=== PATIENT | female | born 1990 | race Caucasian/White ===

== ENCOUNTER 2016-09-14 21:04 | Emergency (ER) | payer OTHER | END 2016-09-14 21:38 | disposition home or self-care (01) | LOC: ER1 21:04 | DX: S90.812A Abrasion, left foot, initial encounter (principal); Z23 Encounter for immunization; Z88.2 Allergy status to sulfonamides; Z88.8 Allergy status to other drugs, medicaments and biological substances; W22.03XA Walked into furniture, initial encounter; Y93.89 Activity, other specified; Y92.009 Unspecified place in unspecified non-institutional (private) residence as the place of occurrence of the external cause | CPT/HCPCS: 90471; 90714; 99283 ==

== ENCOUNTER 2020-04-22 15:24 | Outpatient (CLI) | payer OTHER ==
[~2020-04-22 15:24] MED LIST: BENTYL 20MG TAB20 MG PO; ZOFRAN ODT 4 MG4 MG SL
== END 2020-04-23 16:46 | disposition home or self-care (01) ==
LOC: GENOP 15:24
DX: O36.8130 Decreased fetal movements, third trimester, not applicable or unspecified (principal); O62.9 Abnormality of forces of labor, unspecified; Z3A.31 31 weeks gestation of pregnancy
CPT/HCPCS: 81001; 87635; G0463

== ENCOUNTER → 2020-09-12 | Outpatient (CLI) | payer OTHER | LOC: KOH-I 08:30 | DX: R10.84 Generalized abdominal pain (principal); K82.0 Obstruction of gallbladder; K86.89 Other specified diseases of pancreas | CPT/HCPCS: 76705 ==

== ENCOUNTER → 2020-11-08 | Outpatient (CLI) | payer OTHER | LOC: NM 09:11 | DX: R10.9 Unspecified abdominal pain (principal); R93.2 Abnormal findings on diagnostic imaging of liver and biliary tract | CPT/HCPCS: 78226; A9537 ==

== ENCOUNTER → 2021-01-31 | Outpatient (CLI) | payer OTHER | LOC: KOH-I 08:55 | DX: R51.9 Headache, unspecified (principal) | CPT/HCPCS: 70450 ==

== ENCOUNTER → 2021-02-13 | Outpatient (CLI) | payer OTHER | LOC: KOH-I 13:32 | DX: R05.9 Cough, unspecified (principal) | CPT/HCPCS: 71046 ==

== ENCOUNTER 2021-10-04 12:58 | Emergency (ER) | payer OTHER ==
[2021-10-04] MEDS ORDERED: PREDNISONE20 MG PO (15:45)
== END 2021-10-04 16:30 | disposition home or self-care (01) ==
LOC: ER1 12:58
DX: T63.441A Toxic effect of venom of bees, accidental (unintentional), initial encounter (principal)
CPT/HCPCS: 96374; 96375; 99282; J1200; J2930